=== PATIENT | female | born 1940 | race Caucasian/White ===

== ENCOUNTER 2020-03-24 08:18 | Outpatient (CLI) | payer MEDICARE ==
[~2020-03-24] VITALS: Ht 167.6 cm; Wt 60.1 kg
[2020-03-24] VITALS (7 sets, daily range): BP systolic 137–149; BP diastolic 70–84; PULSE 58–73; TEMP 97.9
[2020-03-24] MEDS ORDERED: CALCIUM 600MG+D1 TAB PO (08:45)
[2020-03-24] MEDS ORDERED: IBU400 MG PO (08:45)
[2020-03-24] MEDS ORDERED: KEPPRA 500MG500 MG PO (08:46)
[2020-03-24] MEDS ORDERED: METROGEL-VAGINA0.75% VG (08:46)
[2020-03-24] MEDS ORDERED: PRESERVISIONLUT PO (08:47)
[2020-03-24] MEDS ORDERED: MASON NATURAL2000 IU PO (08:48)
[2020-03-24 09:16] LABS: BASO % 0.2 % (0.0-2.0); EOS # 0.1 (0.0-0.7); EOS % 0.6 % (0-4.0); GRAN % 77.6 % (42.2-75.2); HEMATOCRIT 39.1 % (37.0-47.0); LYMPH # 1.1 (1.2-3.4); LYMPH % 11.8 % (20.0-51.0); MEAN CELL VOLUME 94 fl (80.0-100.0); MEAN CORPUSCULAR HEMOGLOBIN 31 pg (27.0-31.0); MEAN CORPUSCULAR HGB CONC 33 g/dl (33.0-37.0); MEAN PLATELET VOLUME 9.3 fl (7.4-10.4); MONO # 0.9 (0.1-0.6); MONO % 9.5 % (1.7-9.3); PLATELET COUNT 284 K/mm3 (130-400); RED BLOOD COUNT 4.15 M/mm3 (4.10-5.30); REDCELL DISTRIBUTION WIDTH-CV 12.4 % (11.5-14.5)
[2020-03-24 09:17] LABS: PROTHROMBIN TIME 11.7 SECONDS (9.7-12.8)
--- NOTE | 2020-03-24 09:40 | NUR ---
Report from Jennie BLANCHARD. Pt alert and oriented, denies pain and needs at this time. VSS.
[2020-03-24 09:57] LABS: CALCIUM 9.6 mg/dL (8.4-10.2); CREATININE, serum 0.87 (0.52-1.25); POTASSIUM 4.2 mmol/L (3.4-5.0)
--- NOTE | 2020-03-24 11:15 | NUR ---
INT discontinued intact. Discharge instructions given. transferred to private car by martín
== END 2020-03-24 11:15 | disposition home or self-care (01) ==
LOC: COL.RAD 08:18
PROVIDERS: Internal Medicine Cardiovascular Disease
DX: I08.2 Rheumatic disorders of both aortic and tricuspid valves (principal)
CPT/HCPCS: J2704